=== PATIENT | female | born 1985 | race Caucasian/White ===

== ENCOUNTER 2025-01-15 11:51 | Emergency (ER) | payer SELFPAY ==
[2025-01-15 11:54] VITALS: BP 141/96
[2025-01-15] MEDS: TORADOL 15 MG IV (12:24)
[2025-01-15] MEDS: MAGNESIUM SULFATE 50 IV (12:24)
[2025-01-15] MEDS: REGLAN 10 MG IV (12:25)
--- NOTE | 2025-01-15 12:33 | ED.GENMED ---
History of Present Illness
General
Chief Complaint: Headache
Time Seen by Provider: 01/15/25 12:05
History of Present Illness
History of Present Illness:
39-year-old female presents to the emergency department for evaluation of intractable headache for the past 3 weeks. She reports intermittent worsening with a knifelike quality to the pain particularly to the left occiput. States that headache has
been constant during this time and gradually worsening. Associated with nausea and photophobia no vomiting. Denies any recent head trauma. Does have a history of migraine headaches, has tried Tylenol and ibuprofen without sustained relief
Review of Systems
Review of Systems
Allergies reviewed?: Yes
All Other Systems: ROS reviewed and negative except as documented in HPI and ROS
Phy Exam
Physical Exam
Physical Exam:
GEN: Well appearing, NAD, WDWN
HEENT: Oral mucosa moist, no scleral icterus, no nasal congestion
Cardiac: Regular rate
Lung: No respiratory distress, no tachypnea
MSK: No gross deformity or injuries
Skin: Good color, no pallor or jaundice, no rashes
Neuro: AO x3; CN II-XII grossly intact. BUE strength 5/5 in all [place], sensation intact and symmetric. BLE strength 5/5 in all [place], sensation intact and symmetric
Psych: Calm, cooperative
Course
Orders/Labs/Results
Orders:
Orders
01/15/25 12:14
CT Head W/o Iv Contrast Urgent
Comment:
Reason For Exam: headache, new, persistent
Ketorolac [Toradol] 15 mg IV NOW STA
Magnesium Sulfate 2 Gram/50 ml [Magnesium Sulfate] 2 gram in 50 ml IV NOW
Metoclopramide [Reglan] 10 mg IV NOW STA
Test Result ONCE
01/15/25 12:45
Basic Metabolic Panel Urgent
Complete Blood Count/No Diff Urgent
HCG, Serum Qualitative Screen Urgent
01/15/25 12:45
01/15/25 12:45
Vital Signs
Initial and Last Documented VS:
Initial Vital Signs
Temp Pulse Resp BP Pulse Ox
98.2 F 74 20 141/96 99
01/15/25 11:54 01/15/25 11:54 01/15/25 11:54 01/15/25 11:54 01/15/25 11:54
Last Documented Vital Signs
Temp Pulse Resp BP Pulse Ox
98.2 F 74 20 141/96 99
01/15/25 11:54 01/15/25 11:54 01/15/25 11:54 01/15/25 11:54 01/15/25 12:35
MDM/Problems Addressed
MDM/Problems Addressed:
Due to the intractable nature of the headache a CT was performed to rule out intracranial hemorrhage or mass lesion and this was negative. Labs reassuring. Patient's pain resolved after treatment with IV medications. Will prescribe sumatriptan
for abortive relief, recommend primary care follow-up
*Pulse Oximetry
SaO2: 99
Oxygen Mode of Delivery: Room air
Patient hypoxic: no
*Critical Care Note
Total Time (30-74mins, 75-104mins- exclusive of procedures): Not Applicable
ED Attending Note
-
Portions of this chart may have been created with voice recognition software.� Occasional wrong word or��sound alike� substitutions may have occurred due to the inherent limitations of voice recognition software.
Discharge Plan
Departure
Patient Disposition: Home (Routine Discharge)
Date of Disposition: 01/15/25
Time of Disposition: 14:10
Patient with high blood pressure during this ER visit?: No
Discharge Problem:
Intractable migraine
Instructions: Migraines (DC)
Prescriptions:
New
sumatriptan succinate 50 mg tablet
50 - 100 mg PO ONCE PRN (Reason: migraine headache) Qty: 10 0RF
No Action
topiramate [Topamax] 25 mg tablet
25 mg PO BID Qty: 30 0RF
Referrals:
NONE,* [Family Provider, Internal Medicine]
Interventions
Interventions:
*Risk Screen - Suicide Last Done: 01/15/25 13:23
*General Assessment Last Done: 01/15/25 11:54
*Neglect/Abuse Screening Last Done: 01/15/25 13:23
*ED COVID-19 Vaccine History Last Done: 01/15/25 13:23
*ED Influenza Vaccine History Last Done: 01/15/25 13:23
ED- Neurological Assessment Last Done: 01/15/25 13:13
Discharge Date and Time
Print Language: DIVEHI
[2025-01-15 13:00] LABS: Hematocrit 39.9 % (37.0-47.0); Hemoglobin 14.0 g/dL (12.0-16.0); Mean Corp Hgb Conc. 35.1 g/dL (33.0-37.0); Mean Corpuscular Volume 88.5 fL (81.0-99.0); Platelet Count 261 10^3/uL (130-400); Red Cell Dist. Width 11.9 % (11.5-14.5)
[2025-01-15 13:25] LABS: HCG, Serum Qualitative Screen Negative
[2025-01-15 13:32] LABS: Blood Urea Nitrogen 11 mg/dl (7-17); Calcium 9.2 mg/dl (8.4-10.2); Carbon Dioxide 25 mmol/L (22-30); Chloride 105 mmol/L (98-107); Glucose 82 mg/dl (70-99); Potassium 4.2 mmol/L (3.5-5.1); Sodium 136 mmol/L (135-145); eGFR > 60.00
== END 2025-01-15 14:18 | disposition home or self-care (01) ==
LOC: EMR 11:51
PROVIDERS: Physician Assistant; EMERGENCY PHYSICIAN Emergency Medicine
DX: G43.919 Migraine, unspecified, intractable, without status migrainosus (principal); R11.0 Nausea
CPT/HCPCS: 96375; 96365; 99284; 70450; 80048; 84703; 85027